=== PATIENT | female | born 1975 | race Caucasian/White ===

== ENCOUNTER → 2018-01-30 | Day surgery (SDC) | payer OTHER ==
--- NOTE | 2018-01-27 13:34 | History & Physical Pre-Op ---
General Information and HPI History of Present Illness: Jeniffer is a 42-year-old female with a long-standing and worsening complaint of painful lesions to the plantar aspect of both the left and right feet. The patient has undergone an extended course of conservative care, including shoe gear and activity modification, rest, immobilization course of NSAIDs. None of this is yielded her any significant relief. The patient presents today for preoperative surgical consultation. Patient was referred to our office from Alexander Tellez DPM. Past History Surgical History Pertinent Surgical History: non-contributory Review of Systems Review of Systems: Unremarkable except for that noted in history of present illness Exam & Diagnostic Data Physical Exam: Lungs clear bilaterally. Heart sounds rate and rhythm regular. Lower extremity physical exam demonstrates intact pedal pulses bilaterally. Pulses dorsalis pedis and posterior tibial arteries are palpable bilaterally. Patient without any sensory motor deficits. Deep tendon reflexes grossly intact. Painful lesions at the medial slip of the plantar fascia left and right feet. There are firm nodules which are adhered to the underlying fascia, none pulsatile and tender with deep palpation. Assessment/Plan Assessment/Plan: Painful lesions left and right feet. A lengthy discussion reviewing both surgical and conservative options was held the patient at bedside and the patient elected to go forward with surgery despite the risks. As Ranked By This Provider Problem List: 1. Neoplasm of unspecified behavior of bone, soft tissue, and skin Attending MD Review Statement Attending Statement Attending MD Statement: examined this patient
[~2018-01-30] VITALS: Ht 157.5 cm; Wt 63.5 kg
--- NOTE | 2018-01-30 10:11 | Operative Report ---
Operative/Inv Procedure Report Surgery Date: 01/30/18 Name of Procedure: 1 excision of soft tissue mass plantar right foot 2 closure of open surgical wound local random advancement flap right foot 3 excision of soft tissue mass plantar left foot 4 closure of open surgical wound with local random advancement flap left foot Pre-Operative Diagnosis: 1 painful, enlarging soft tissue mass plantar right foot 2 painful, enlarging soft tissue mass plantar left foot Post-Operative Diagnosis: The same Estimated Blood Loss: scant Surgeon/Patient Liaison: Bree BARNES,Roney Tellez DPM Anesthesia: moderate sedation, block Operative/Procedure Note Note: After obtaining informed consent the patient was brought to the operating room and placed on the operating table in the supine position. The patient isn't securely fastened to the operating table utilizing safety belt. After administration of IV sedation, 10 mL of 0.5% Marcaine plain was infiltrated about the patient's left and right ankles. 2 well-padded ankle tourniquets were placed about the patient's left and right lower extremities. Left right feet were then scrubbed prepped and draped in usual aseptic manner. Attention directed plantar aspect the right foot, where a linear incision was made overlying a nodular lesion. The dissection was then carried down to the subtenons tissues were the margin of the lesion was identified. It was freed from proximal the distal and passed from the operative field was sent a specimen for pathologic inspection. The ends of the resected lesion with and cauterized within the foot to prevent recurrence. The adjacent tissues were then undermined, mobilized and advanced centrally with 3-0 Vicryl. The skin edges reapproximated 3-0 nylon. Incision was dressed with Xeroform 4 x 4's Kerlix and Shekhar wrap. The tourniquet was then deflated. Next, the left lower extremity was elevated to examine to limb, which point the ankle tourniquet inflated 250 mmHg. Attention directed plantar aspect of left foot, where nodular lesion was identified at the central medial arch. A linear incision overlying the lesion was incised with 15 blade. The dissection was then carried down to subtenons tissues with the margins of lesion was identified and was freed from distal to proximal. It was sent a specimen for pathologic inspection. The margins within the foot was then cauterized with Bovie and the open surgical wound was closed after undermining, mobilization and advancement adjacent tissue centrally. The central aspect of the flap was held together with 3-0 Vicryl and the skin edges reapproximated 3-0 nylon. Incision was dressed with Xeroform 4 x 4's Kerlix and Shekhar wrap. The patient was noted to tolerate both procedure and anesthesia well and the patient was transported from the operating room to recovery with vital signs stable best assess intact to both the plantar medial plantar lateral flaps bilaterally.
== END ==
LOC: STS 03:17
DX: D21.22 Benign neoplasm of connective and other soft tissue of left lower limb, including hip (principal); D21.21 Benign neoplasm of connective and other soft tissue of right lower limb, including hip; F17.210 Nicotine dependence, cigarettes, uncomplicated; Z79.899 Other long term (current) drug therapy
CPT/HCPCS: 81025; J0690; J1100; J2001; J2250

== ENCOUNTER → 2018-07-03 | Day surgery (SDC) | payer OTHER ==
[~2018-07-03] VITALS: Ht 157.5 cm; Wt 70.5 kg
--- NOTE | 2018-07-03 09:15 | Operative Report ---
Operative/Inv Procedure Report Surgery Date: 07/03/18 Name of Procedure: 1 excision of soft tissue mass right 2 excision of soft tissue mass left 3 closure of open surgical wound with local retinal advancement flap right foot 4 closure of open surgical wound with local advancement flap left foot Pre-Operative Diagnosis: 1 painful, enlarging soft tissue mass right foot 2 painful, enlarging soft tissue mass left foot Post-Operative Diagnosis: The same Estimated Blood Loss: scant Surgeon/Whiting Machine Operator: Bree BARNES,Roney Tellez DPM Anesthesia: moderate sedation, block Operative/Procedure Note Note: After obtaining informed consent the patient was brought to the operating room and placed on the operating table in the supine position. The patient was then securely fastened to the operating table utilizing safety belt. After menstruation of IV sedation, 10 cc of 0.5% Marcaine plain was infiltrated about the patient's left and right ankles. 2 well-padded ankle tourniquets were placed about the patient's right and left lower extremities. 2 g of Ancef were delivered intravenously 1 dose. The left and right feet were then scrubbed, prepped and draped in the usual aseptic manner. The right lower extremity was elevated to exsanguinate the limb, which point the ankle tourniquet inflated 250 mmHg. Attention directed plantar aspect right foot, where a 7 cm curvilinear incision over the soft tissue mass was marked with a skin marker. The skin was signed a 15 blade and carried down this obtains tissues. All vital neurovascular structures were identified and protected. The margins of the lesion were identified and freed from the adjacent soft tissues. The dissection continued from distal to proximal in the nodular lesion was passed from the operative field. There is noted to be pale yellowish in color and firm and fibrous to touch. A plantar medial plantar flap was then developed with undermining, mobilization and advancement of the adjacent tissue centrally. The deep side of the flap was held with 3-0 Vicryl. The skin edges reapproximated 3 -0 nylon. The incision was dressed with Xeroform, 4 x 4's, Kerlix and Shekhar wrap. The tourniquet was then deflated. Next, the left lower extremity was elevated to exsanguinate the limb, at which point the ankle tourniquet was inflated to 250 mmHg. Attention was directed to the plantar aspect of the left foot, where a 6 cm curvilinear incision overlying the soft tissue mass was marked with a skin marker. The skin was then incised with 15 blade. The dissection was then carried down to this obtains tissues, were all vital neurovascular structures were then fine protected. The margins of the lesion were identified and they were freed from the adjacent soft tissues. The dissection extending from proximal to distal and the lesion was passed from the operative field. Was sent for pathologic inspection. The lesion was again noted to be pale yellowish in color and firm to feel. A plantar medial plantar lateral flap was then developed with undermining, mobilization and advancement of the adjacent soft tissues. The deep center flap was held with 3-0 Vicryl and the skin edges repacked with 3-0 nylon. The incision was then dressed with Xeroform, 4 x 4's, Kerlix and an Shekhar wrap. The patient was noted to tolerate both procedure and anesthesia well and the patient was transported to the operating room to recovery with vital signs stable vascular status intact to both the plantar medial plantar lateral flaps bilaterally.
== END ==
LOC: STS 01:54
DX: M72.2 Plantar fascial fibromatosis (principal); M79.672 Pain in left foot; M79.671 Pain in right foot
CPT/HCPCS: 81025; J0131; J2001; J2250